=== PATIENT | male | born 1970 | race Caucasian/White ===

== ENCOUNTER 2019-02-26 09:19 | Inpatient (IN) | payer OTHER ==
[~2019-02-26] VITALS: Ht 185.4 cm; Wt 82.1 kg
[2019-02-26 09:20] VITALS: BP 157/96
[2019-02-26] MEDS ORDERED: ZOCOR20 MG PO (09:25)
[2019-02-26 09:36] LABS: ABSOLUTE EOSINOPHILS 0.3 thou/uL (0.0-0.7); ABSOLUTE LYMPHOCYTES 1.8 thou/uL (0.8-5.3); ABSOLUTE MONOCYTES 0.6 thou/uL (0.0-1.2); ABSOLUTE NEUTROPHILS 3.1 thou/uL (1.6-8.1); BASOPHILS 0.6 %; EOSINOPHILS 5.4 %; HEMATOCRIT 48.3 % (42.0-52.0); HEMOGLOBIN 16.8 gm/dL (14.0-18.0); LYMPHOCYTES 31.1 %; MCH 30.7 pg (26.0-34.0); MCHC 34.8 g/dL (28.0-37.0); MCV 88.1 fL (80.0-100.0); MONOCYTES 9.7 %; MPV 6.9 fl. (7.2-11.1); NUCLEATED RBCS 0 /100WBC; PLATELET COUNT* 234 thou/uL (150-400); POLYS 53.2 %; RBC 5.48 mil/uL (4.50-6.00); RDW-CV 14.1 % (10.5-14.5); WBC 5.9 thou/uL (4.0-11.0)
[2019-02-26 09:50] LABS: PROTIME 10.1 Seconds (9.20-11.50)
[2019-02-26 09:53] LABS: ANION GAP 9 mmol/L (7-16); BUN 19 mg/dL (7-18); CALCIUM 8.9 mg/dL (8.5-10.1); CHLORIDE 103 mmol/L (98-107); CO2 27 mmol/L (21-32); CREATININE 1.2 mg/dL (0.6-1.3); GLUCOSE 148 mg/dL (70-99); POTASSIUM 4.1 mmol/L (3.5-5.1); SODIUM 139 mmol/L (136-145)
[2019-02-26 10:04] LABS: ALBUMIN 3.9 g/dL (3.4-5.0); ALKALINE PHOSPHATASE 75 U/L (46-116); LIPASE 122 U/L (73-393); MAGNESIUM 2.3 mg/dL (1.8-2.4); NT-PRO BRAIN NAT PEPTIDE 14 pg/mL (<300); SGOT 42 U/L (15-37); SGPT 78 U/L (30-65); TOTAL BILIRUBIN 0.5 mg/dL (<0.1-1.0); TOTAL PROTEIN 7.6 g/dL (6.4-8.2); TROPONIN-I LEVEL <0.06 ng/mL (<0.06)
[2019-02-26 10:52] VITALS: BP 115/76
[2019-02-26 11:03] VITALS: BP 113/68
[2019-02-26] MEDS ORDERED: NIACIN 500 MG500 M1 PO (11:16)
[2019-02-26] MEDS ORDERED: COQ-10100 MG PO (11:16)
[2019-02-26] MEDS ORDERED: FISH OIL 1,001000 M2 PO (11:16)
[2019-02-26] MEDS ORDERED: VITAMIN D1000 UNI1 PO (11:17)
--- NOTE | 2019-02-26 11:28 | NUR ---
RECEIVED REPORT MALATHI MCGRATH, RN IN ER OF EXPECTED ADMISSION AT 1145- DX: CHEST PAIN- PT ARRIVED TO ROOM 230 VIA CART, SBA TO BED AT 1156- MAINTENANCE PERSON PLACED ORDERED, TRACING SR- VS 97.8 18 113/68 78 96% ON 2L VIA NC- AT SIDE AT TIME OF ADMISSION- PT A&O X4- CONTINENT OF B/B- UP AD-GRADY IN ROOM, STEADY GAIT NOTED- LCTA, RESP EVEN AND UN-LABORED- ABD SOFT/FLAT/NON-TENDER, BS X4 QUADS- LAST BM REPORTED 02/25/19- IV NOTED TO LEFT AC INTACT AND SL- SKIN C/D/I- REPORTS TO WEAR RERADING GLASSES OF WHICH HE LEFT AT HOME- AT SIDE AT TIME OF ADMISSION- MORPHINE NOTED TO HAVE BEEN GIVEN PRIOR TO ADMISSION- PT DENIES ANY C/O PAIN/DISCOMFORT AT TIME OF ADMISSION- CALL LIGHT AND PERSONAL BELONGINGS WITH IN REACH- ALL NEEDS MET AT THIS TIME-WCTM
[2019-02-26 14:07] LABS: AMP/METHAMP Negative (Negative); BARBITURATES Negative (Negative); BENZODIAZEPINES Negative (Negative); COCAINE Negative (Negative); METHADONE Negative (Negative); OPIATES POSITIVE (Negative); PCP Negative (Negative); THC Negative (Negative)
--- NOTE | 2019-02-26 16:07 | NUR ---
PT NOTED TO BE RESTING IN BED WATCHING TV- CARDIAC MONITORING IN PLACE ORDERED, TRACING SR- IV TO LEFT AC INTACT AND SL- GOOD PO INTAKE NOTED- UA ORDERED AND COLLECTED FOR TOX SCREEN, RESULTS NOTED IN MEDITECH- CARDIO CONSULT CALLED IN TO ANSWERING SERVICE WITH MESSAGE LEFT WITH SINCERE THIS SHIFT- PT STATES TO BE MOSTLY PAIN FREE AT THIS TIME- STATES OCCASSIONAL PIN PRICK FEELING TO LEFT CHEST WITH TINGLING ON OCCASSION- PT MAKES NEEDS KNOWN- ALL NEEDS MET AT THIS TIME-WCTM
[2019-02-26 16:32] VITALS: BP 142/88
[2019-02-26 20:00] VITALS: BP 134/91
[2019-02-27] VITALS: BP 121/73
[2019-02-27 04:00] VITALS: BP 117/72
[2019-02-27 05:17] LABS: ABSOLUTE EOSINOPHILS 0.4 thou/uL (0.0-0.7); ABSOLUTE LYMPHOCYTES 2.3 thou/uL (0.8-5.3); ABSOLUTE MONOCYTES 0.7 thou/uL (0.0-1.2); ABSOLUTE NEUTROPHILS 3.6 thou/uL (1.6-8.1); BASOPHILS 0.6 %; EOSINOPHILS 5.7 %; HEMATOCRIT 48.4 % (42.0-52.0); HEMOGLOBIN 16.3 gm/dL (14.0-18.0); LYMPHOCYTES 32.1 %; MCH 30.1 pg (26.0-34.0); MCHC 33.6 g/dL (28.0-37.0); MCV 89.6 fL (80.0-100.0); MONOCYTES 10.3 %; MPV 7.1 fl. (7.2-11.1); NUCLEATED RBCS 0 /100WBC; PLATELET COUNT* 215 thou/uL (150-400); POLYS 51.3 %; RBC 5.41 mil/uL (4.50-6.00); RDW-CV 14.1 % (10.5-14.5)
--- NOTE | 2019-02-27 05:19 | NUR ---
ASSUMED CARE AT 1900H, ON NC BUT REMOVED AND TOLERATED WELL AT ROOM AIR.STILL COMPLAIN OF LEFT RIB SIDE PAIN.PRN MEDS GIVEN.NO CHANGES IN EKG.CONTINUE MONITORING AND TOWARDS GOAL.
[2019-02-27 05:26] LABS: CALCIUM 8.5 mg/dL (8.5-10.1); POTASSIUM 3.9 mmol/L (3.5-5.1)
[2019-02-27 08:00] VITALS: BP 130/90
--- NOTE | 2019-02-27 11:14 | EKG ---
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: KF : 1970 Requested By: Maged Zamora Order Number: [id number] MD: Sunday James Measurements Intervals [place] Rate: 100 P: 55 IL: 150 QRS: 54 QRSD: 79 T: 15 QT: 328 QTc: 423 Interpretive Statements Sinus tachycardia Probable left atrial enlargement Baseline wander in lead(s) V1 No previous ECG available for comparison Electronically Signed On 02-27-2019 11:14:20 CDT by Sunday James [email or web address] <ELECTRONICALLY SIGNED> By: Sunday James MD, [facility] 02/27/19 1114 0 0 Sunday James MD, [facility] /EPI
[2019-02-27 11:40] VITALS: BP 136/87
--- NOTE | 2019-02-27 11:52 | NUR ---
PT UP AND ABOUT IN HALLS, INDEPENDENT. AWAITING STRESS TEST AND MAY DC. WILL FOLLOW
[2019-02-27 15:33] VITALS: BP 131/88
[2019-02-27 17:00] VITALS: BP 131/88
--- NOTE | 2019-02-27 17:37 | NUR ---
ASSUMED PT CARE AT 0730. ASSESSMENT COMPLETED CHARTED. ABLE TO MAKE NEEDS KNOWN. UP AD GRADY. AT BEDSIDE. NO C/O PAIN OR DISCOMFORT. PT CAME BACK FROM STRESS ECHO AROUND 1720 AND PT WAS DISCHARGED AROUND 1730 TO HOME. TOOK PT HOME AND STAFF TOOK PT DOWN TO VEHICLE. IV TAKEN OUT AND HEART MONITOR REMOVED. PT TOOK DISCHARGE PAPERWORK, NO COMMENTS, QUESTIONS OR CONSERNS NOTED.
--- NOTE | 2019-02-28 16:31 | EXE ---
[place] [address] STRESS ECHOCARDIOGRAM Name: ZHANG PINEDA Room: [address]#: [id number] Admission: 02/26/19 Attend Phys: Lizandro Bobo, Discharge: 02/27/19 Date of : 70 Date of Service: 02/28/19 1631 Report #: [id number] THIS REPORT FOR: //name// APPROVED REPORT Study performed: 02/27/2019 16:40:52 Exam: Stress Echocardiogram Indication: Chest pain Patient Location: In-Patient Stress Nurse: Karin Florence RN Room #: [facility] Supervising Physician: Sunday James MD Status: routine Ht: 6 ft 1 in HR: 90 bpm BP: 152/94 mmHg Rhythm: NSR Medical History Medications: asa, Hydralazine, NTG, Niacin, Zocor Cardiac Risk Factors: Hyperlipidemia, HTN, FHX of CAD Procedure The patient underwent an Exercise Stress Test using the Joseph Protocol. Blood pressure, heart rate, and EKG were monitored. An Echocardiogram was performed by radiology technician in four stages in quad fashion. At peak stress, four selected images were obtained and placed side by side with resting images for comparison. Stress Test Details Stress Test: Exercise stress testing was performed using a Joseph protocol. HR Resting HR: 90 bpm Max Heart Rate (APMHR): 172 bpm Max HR Achieved: 182 bpm Target HR (85% APMHR): 146 bpm % of APMHR: 105 Recovery HR: 120 bpm HR response to stress: Normal HR response to stress BP Resting BP: 152/94 mmHg Max BP: 196/85 mmHg Recovery BP: 112/85 mmHg BP response to stress: [place] [address] STRESS ECHOCARDIOGRAM Name: ZHANG PINEDA Room: [address]#: [id number] Admission: 02/26/19 Attend Phys: Lizandro Bobo, Discharge: 02/27/19 Date of : 70 Date of Service: 02/28/19 1631 Report #: [id number] stress. ECG Resting ECG: Sinus Rhythm, nonspecific ST-T abnormalities Stress ECG: Sinus Rhythm, nonspecific ST-T abnormalities ST Change: Upsloping ST depression Maximum ST Deviation: 0.5 mm Arrhythmia: VPC's Recovery ECG: Sinus Rhythm, nonspecific ST-T abnormalities Recovery ST Change: Upsloping ST depression Recovery ST Deviation: 0.5 mm Recovery Arrhythmia: None Clinical Reason for Termination: Completed protocol Exercise duration: 11 min 23 sec Highest Stage Achieved: Stage 4: 4.2 mph at 16% grade. Exercise capacity: 13.48 METs Pre-Stress Echo The resting Echocardiogram showed normal left ventricular contractility with an estimated Ejection Fraction of about 55-60%. Post-Stress Echo The stress Echocardiogram showed normal left ventricular contractility with an estimated Ejection Fraction of about >70%. Compared to rest, there were no stress-induced wall motion abnormalities. Conclusion Clinical Response: Non-ischemic Exercise Capacity: Superior Stress ECG Response: Indeterminant Stress Echo Images: Non-ischemic low risk stress echo for predicting future cardiac events Other Information Study Quality: [place] [address] STRESS ECHOCARDIOGRAM Name: ZHANG PINEDA Room: [address]#: [id number] Admission: 02/26/19 Attend Phys: Lizandro Bobo, Discharge: 02/27/19 Date of : 70 Date of Service: 02/28/191630 Report #: [id number] <Conclusion> low risk stress echo for predicting future cardiac events <ELECTRONICALLY SIGNED> By: Sunday James MD, FACC 02/28/191630 30 30 Sunday James MD, FACC /INF
--- NOTE | 2019-03-01 14:08 | CON ---
[address] [address] CONSULTATION Name: ZHANG PINEDA Room: [address] IN M.R.#: [id number] Admission: 02/26/19 Attend Phys: Lizandro Bobo MD Discharge: 02/27/19 Date of : 70 Report #: [id number] THIS REPORT FOR: //name// CC: Lizandro Claudio DO DATE OF SERVICE: 02/27/2019 CARDIOLOGY CONSULTATION HISTORY OF PRESENT ILLNESS: The patient is a 48-year-old white male who I was asked to see in the hospital today after he had an episode of chest pressure. The patient has no previous history of heart disease. He has had no previous cardiac evaluation. He does go for walks frequently. About a week ago, he noticed some pain under his left armpit. It recurred off and on. It is not related to lifting or activity. Denied trauma, swelling, or redness. He then noticed for the past several days, he has had intermittent pressure near his left nipple. It is not related to activity or meals. Denied trauma to his chest. No associated shortness of breath, diaphoresis, nausea. He has had no bleeding. He has had a rare cough. He came to the Emergency Room yesterday and was admitted. He denies exertional dyspnea. He has had no edema. He does note occasional flutter in his chest. No syncope. PAST MEDICAL HISTORY: Significant for removal of pilonidal cyst. He has a history of hyperlipidemia, is on Zocor. He has had elevated blood pressure in the past. No history of diabetes. ALLERGIES: He has no known drug allergies. FAMILY HISTORY: Grandmother had a pacemaker. SOCIAL HISTORY: He is . He and his live in [place]. 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 No smoking. Rarely drinks alcohol. REVIEW OF SYSTEMS: He has had no history of stroke, asthma, peptic ulcer disease, liver disease, kidney disease, cancer, psychiatric illness, chronic skin condition. PHYSICAL EXAMINATION: GENERAL: Revealed a middle-aged male, appeared in no distress. VITAL SIGNS: He had a blood pressure of 140/80, pulse 70, he is afebrile. HEENT: He was anicteric. Conjunctivae are pink. Mucous membranes moist. NECK: Veins nondistended. No carotid bruits. Neck supple. CHEST: Clear to auscultation. CARDIOVASCULAR: [place] [address] CONSULTATION Name: CADEN PINEDACYNTHIA Mcdowell Room: [address]#: [id number] Admission: 02/26/19 Attend Phys: Lizandro Bobo MD Discharge: 02/27/19 Date of : 70 Report #: [id number] ABDOMEN: Soft. EXTREMITIES: Had no edema. Posterior tibial pulse 3+ bilaterally. SKIN: Warm, dry. NEUROLOGIC: Nonfocal. LYMPH: There is no adenopathy in the left axilla. RADIOLOGICAL DATA: His ECG on admission showed a sinus rhythm. There was nonspecific T-wave changes noted. Workup in the Emergency Room yesterday, he had a portable chest x-ray that showed no acute abnormality. LABORATORY WORK: Sodium 141, glucose 103, creatinine 1.0. Liver function studies were normal. Troponins all 0.06. White blood cell count 7.0, hemoglobin 16.3. IMPRESSION AND RECOMMENDATIONS: 1. Chest pressure. Atypical for angina. The patient does have risk factors. Recommend stress echo. 2. Pain in his left armpit. No adenopathy noted. Suspect musculoskeletal. 3. Hyperlipidemia. The patient is on a statin drug. 4. Borderline hypertension. Recommend exercise and sodium restriction. <ELECTRONICALLY SIGNED> By: Sunday James MD, [facility] 03/01/19 1408 0828 [id number] James MD, FACC /nt
== END 2019-02-27 17:36 | disposition home or self-care (01) | DRG 313 ==
LOC: M.ERS 09:19 → M.TBA-ER 10:12 → M.2W 10:12
PROVIDERS: Emergency Medicine Emergency Medical Services; ADMIT Internal Medicine
DX: R07.89 Other chest pain (principal); E78.5 Hyperlipidemia, unspecified; E78.00 Pure hypercholesterolemia, unspecified; Z79.899 Other long term (current) drug therapy; Z82.49 Family history of ischemic heart disease and other diseases of the circulatory system